=== PATIENT | female | born 1990 | race Caucasian/White ===

== ENCOUNTER → 2021-02-13 | Outpatient (CLI) | payer MEDICAID ==
[~2021-02-13] MED LIST: GADOBUTROL 10 MMOL/10 ML (GADAVIST) VIAL IV ONE
--- NOTE | 2021-02-13 17:01 | Diagnostic Imaging Report ---
PROCEDURE: MR imaging of the brain with and without contrast. TECHNIQUE: Multiplanar, multisequence MR imaging of the brain was performed with and without contrast. INDICATION: Near syncopal episodes. Dizziness. COMPARISON: None FINDINGS: An extra-axial, intensely T1 and T2 hypointense lesion is seen overlying the right frontal lobe which demonstrates no evidence of enhancement. There is a small amount of adjacent cortical edema associated with this lesion. No acute ischemia, intra-axial mass, or hemorrhage. No abnormal enhancement is seen. Focal and confluent areas of T2 hyperintense signal are seen in the periventricular and subcortical white matter. The ventricles, cortical sulci, and basilar cisterns are symmetric and unremarkable. The sellar and suprasellar regions have a normal appearance. The brainstem and posterior fossa are unremarkable. The paranasal sinuses and mastoid air cells demonstrate normal signal characteristics. The globes and orbits are symmetric and unremarkable. The scalp and calvarium have a normal appearance. IMPRESSION: 1. Extra-axial mass which demonstrates no evidence of enhancement. Findings most likely represent a densely calcified meningioma. There is a small amount of adjacent parenchymal edema in the right frontal lobe. Consider CT of the head to further evaluate the osseous features and confirm dense calcification. Neurosurgical consultation should also be considered given the patient history. 2. Focal and confluent T2 hyperintense signal in the periventricular and subcortical white matter in the bilateral cerebral hemispheres. No associated enhancement is seen with these areas. Given the patient age demyelination is felt to be most likely. However, chronic microvascular disease can have this appearance with underlying vasculitis. Consider CSF studies to further evaluate and follow-up as indicated. 3. No acute ischemia or abnormal enhancement. No acute hemorrhage. Dictated by: Dictated on workstation # [id number]
== END ==
LOC: RAD 15:10
PROVIDERS: ATTEND Nurse Practitioner Family
DX: G93.6 Cerebral edema (principal); Z82.0 Family history of epilepsy and other diseases of the nervous system; Z84.89 Family history of other specified conditions
CPT/HCPCS: 70553

== ENCOUNTER → 2021-10-11 | Outpatient (CLI) | payer MEDICAID | LOC: RAD 14:45 | PROVIDERS: ATTEND Nurse Practitioner Family | DX: R20.0 Anesthesia of skin (principal); R20.2 Paresthesia of skin; D33.2 Benign neoplasm of brain, unspecified; R53.1 Weakness; R47.81 Slurred speech ==

== ENCOUNTER 2022-05-16 14:48 | Emergency (ER) | payer MEDICAID ==
[~2022-05-16] VITALS: Ht 162.6 cm; Wt 122.6 kg
--- NOTE | 2022-05-16 14:53 | ED Chest Pain ---
General Stated Complaint: CHEST PAIN History of Present Illness Date Seen by Provider: May 16, 2022 Time Seen by Provider: 14:53 Initial Comments 31-year-old female presents with chest pressure that started about 30 minutes ago. Patient also complains of some left-sided numbness of her whole body. 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 Patient reports that she frequently gets numbness on the left side but this is lasted longer than normal and that has been going on since about 1:30 PM. She denies any focal weakness. Patient denies any shortness of breath, she did have some episodes of vomiting. She denies any radiation of the pain. She reports that she was just in on a couch when the chest pressure started. Patient with Allergies and Home Medications Allergies Coded Allergies: No Known Drug Allergies (Unverified , 02/13/21) Patient Home Medication List Home Medication List Reviewed: Yes Review of Systems Review of Systems Constitutional: No chills, No fever EENTM: No Symptoms Reported; No Blurred Vision Respiratory: Denies Cough, Denies Shortness of Air Cardiovascular: Chest Pain; Denies Lightheadedness, Denies Palpitations, Denies Syncope Gastrointestinal: Denies Abdominal Pain; Nausea, Vomiting Genitourinary: No Symptoms Reported; Denies Burning Musculoskeletal: no symptoms reported Skin: no symptoms reported Psychiatric/Neurological: Denies Headache; Numbness; Denies Weakness Endocrine: No Symptoms Reported Hematologic/Lymphatic: No Symptoms Reported Physical Exam Vital Signs Vital Signs - First Documented 05/16/22 14:48 Temp 36.6 Pulse 67 Resp 18 B/P (MAP) 139/75 (96) Pulse Ox 99 O2 Delivery Room Air Capillary Refill : Height, Weight, BMI Height: '" Weight: lbs. oz. 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 as Tested Skin: Normal Color, Warm/Dry Progress/Results/Core Measures Results/Orders Lab Results Laboratory Tests Test 05/16/22 15:00 05/16/22 16:47 Range/Units White Blood Count 12.1 H 4.3-11.0 10^3/uL Red Blood Count 4.33 3.80-5.11 10^6/uL Hemoglobin 12.5 11.5-16.0 g/dL Hematocrit 38 35-52 % Mean Corpuscular Volume 88 80-99 fL Mean Corpuscular Hemoglobin 29 25-34 pg Mean Corpuscular Hemoglobin Concent 33 32-36 g/dL Red Cell Distribution Width 14.9 H 10.0-14.5 % Platelet Count 296 130-400 10^3/uL Mean Platelet Volume 11.5 9.0-12.2 fL Immature Granulocyte % (Auto) 0 % Neutrophils (%) (Auto) 72 42-75 % Lymphocytes (%) (Auto) 18 12-44 % Monocytes (%) (Auto) 4 0-12 % Eosinophils (%) (Auto) 6 0-10 % Basophils (%) (Auto) 0 0-10 % Neutrophils # (Auto) 8.7 H 1.8-7.8 10^3/uL Lymphocytes # (Auto) 2.1 1.0-4.0 10^3/uL Monocytes # (Auto) 0.5 0.0-1.0 10^3/uL Eosinophils # (Auto) 0.7 H 0.0-0.3 10^3/uL Basophils # (Auto) 0.0 0.0-0.1 10^3/uL Immature Granulocyte # (Auto) 0.0 0.0-0.1 10^3/uL Prothrombin Time 12.9 12.2-14.7 SEC INR Comment 0.9 0.8-1.4 Activated Partial Thromboplast Time 29 24-35 SEC Sodium Level 139 135-145 MMOL/L Potassium Level 4.0 3.6-5.0 MMOL/L Chloride Level 103 98-107 MMOL/L Carbon Dioxide Level 22 21-32 MMOL/L Anion Gap 14 5-14 MMOL/L Blood Urea Nitrogen 16 7-18 MG/DL Creatinine 1.20 0.60-1.30 MG/DL Estimat Glomerular Filtration Rate 62 BUN/Creatinine Ratio 13 Glucose Level 106 H 70-105 MG/DL Calcium Level 8.5 8.5-10.1 MG/DL Corrected Calcium 8.4 L 8.5-10.1 MG/DL Magnesium Level 1.9 1.6-2.4 MG/DL Total Bilirubin 0.3 0.1-1.0 MG/DL Aspartate Amino Transf (AST/SGOT) 16 5-34 U/L Alanine Aminotransferase (ALT/SGPT) 6 0-55 U/L Alkaline Phosphatase 80 40-136 U/L Myoglobin 41.4 <58.0 NG/ML Troponin I < 0.30 < 0.30 <0.30 NG/ML Total Protein 7.9 6.4-8.2 GM/DL Albumin 4.1 3.2-4.5 GM/DL My Orders Orders - HUDSON,GILMER L DO Cbc With Automated Diff (05/16/22 14:55) Magnesium (05/16/22 14:55) Chest 1 View Ap/Pa Only (05/16/22 14:55) Ekg Tracing (05/16/22 14:55) Comprehensive Metabolic Panel (05/16/22 14:55) Myoglobin Serum (05/16/22 14:55) Protime With Inr (05/16/22 14:55) Partial Thromboplastin Time (05/16/22 14:55) Monitor-Rhythm Ecg Trace Only (05/16/22 14:55) Aspirin Chewable Tablet (Baby Aspirin Ch (05/16/22 15:00) Ed Iv/Invasive Line Start (05/16/22 14:55) Troponin I Fs (05/16/22 14:55) Ct Head Wo-R/O Stroke (05/16/22 14:55) Troponin I Fs (05/16/22 16:47) Medications Given in ED Current Medications Medications Dose Ordered Sig/Yaneli Route Start Time Stop Time Status Last Admin Dose Admin Aspirin 324 mg ONCE ONCE PO 05/16/22 15:00 05/16/22 15:01 DC 05/16/22 15:05 324 MG Vital Signs/I&O 05/16/22 05/16/22 14:48 17:31 Temp 36.6 Pulse 67 72 Resp 18 22 B/P (MAP) 139/75 (96) 128/80 Pulse Ox 99 96 O2 Delivery Room Air Room Air Progress Progress Note : Progress Note Patient with negative troponin and negative EKG. Patient's labs show no acute abnormalities. Patient CT shows no acute changes from her previous MRI. Patient with no neurologic findings on exam. Patient was offered admission for observation and further evaluation but declined. Patient is ready to be discharged home and is stable upon discharge Initial ECG Impression Date: May 16, 2022 Initial ECG Impression Time: 14:53 Initial ECG Rate: 71 Initial ECG Rhythm: Normal Sinus Initial ECG Intervals: QRS (111) Initial ECG Impression: Nonspecific Changes Diagnostic Imaging Diagonstic Imaging: CT Plain Films/CT/US/NM/MRI: head Comments Date of Exam:05/16/22 CT HEAD WO-R/O STROKE PROCEDURE: CT head wo r/o stroke. TECHNIQUE: Multiple contiguous axial images were obtained through the brain without the use of intravenous contrast. Auto Exposure Controls were utilized during the CT exam to meet ALARA standards for radiation dose reduction. INDICATION: Left-sided numbness. COMPARISON: MRI brain from 02/13/2021. FINDINGS: No intracranial hyperdense hemorrhage or new mass. Stable densely sclerotic right frontal calvarial lesion which projects inward from the inner table and is most compatible of the osteoma. This results in mild aspect underlying frontal lobe but no midline shift. No hydrocephalus or midline shift. Mineralization of the bilateral basal ganglia noted. No features of acute territorial infarct. No acute calvarial abnormality. Partial opacification of bilateral frontal and ethmoid sinuses. IMPRESSION: 1. No acute intracranial hemorrhage or features of large territorial infarct. 2. 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 This is stable in appearance since recent MRI and does not cause midline shift. Reviewed: Reviewed by Me, Reviewed/Discussed Diagonstic Imaging: Xray Plain Films/CT/US/NM/MRI: chest Comments Date of Exam:05/16/22 CHEST 1 VIEW AP/PA ONLY EXAM: Chest 1 view AP/PA only INDICATION: Chest pain. COMPARISON: None. FINDINGS: Normal heart size and central pulmonary vascularity. Lungs are clear. No pleural effusion or pneumothorax. No acute osseous finding. IMPRESSION: Negative chest. 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 Referrals: NO,LOCAL PHYSICIAN (PCP) Primary Care Physician Patient Instructions: Chest Pain, Chest Pain That Is Not Caused by the Heart (DC) Add. Discharge Instructions: Follow-up with your primary care provider and neurologist as needed Return to the ER with worsening of symptoms or any other concerns GILMER HUDSON DO May 16, 2022 14:53
[2022-05-16] MEDS ORDERED: ASPIRIN 81 MG CHEW (CHILDREN'S ASA) PO ONE (15:00)
[2022-05-16 15:04] LABS: BASOPHILS % (AUTO) 0 % (0-10); EOSINOPHILS # (AUTO) 0.7 10^3/uL (0.0-0.3); EOSINOPHILS % (AUTO) 6 % (0-10); HEMATOCRIT 38 % (35-52); HEMOGLOBIN 12.5 g/dL (11.5-16.0); LYMPHOCYTES # (AUTO) 2.1 10^3/uL (1.0-4.0); LYMPHOCYTES % (AUTO) 18 % (12-44); MEAN CORPUSCULAR HEMOGLOBIN 29 pg (25-34); MEAN CORPUSCULAR HGB CONC 33 g/dL (32-36); MEAN CORPUSCULAR VOLUME 88 fL (80-99); MEAN PLATELET VOLUME 11.5 fL (9.0-12.2); MONOCYTES # (AUTO) 0.5 10^3/uL (0.0-1.0); MONOCYTES % (AUTO) 4 % (0-12); NEUTROPHILS # (AUTO) 8.7 10^3/uL (1.8-7.8); NEUTROPHILS % (AUTO) 72 % (42-75); PLATELET COUNT 296 10^3/uL (130-400); WHITE BLOOD COUNT 12.1 10^3/uL (4.3-11.0)
[2022-05-16 15:19] LABS: INR 0.9 (0.8-1.4); PROTHROMBIN TIME PATIENT 12.9 SEC (12.2-14.7)
[2022-05-16 15:24] LABS: ALBUMIN 4.1 GM/DL (3.2-4.5); BILIRUBIN,TOTAL 0.3 MG/DL (0.1-1.0); CALCIUM 8.5 MG/DL (8.5-10.1); CREATININE SERUM 1.2 MG/DL (0.60-1.30); MAGNESIUM 1.9 MG/DL (1.6-2.4); TOTAL PROTEIN 7.9 GM/DL (6.4-8.2)
--- NOTE | 2022-05-16 15:36 | Diagnostic Imaging Report ---
PROCEDURE: CT head wo r/o stroke. TECHNIQUE: Multiple contiguous axial images were obtained through the brain without the use of intravenous contrast. Auto Exposure Controls were utilized during the CT exam to meet ALARA standards for radiation dose reduction. INDICATION: Left-sided numbness. COMPARISON: MRI brain from 02/13/2021. FINDINGS: No intracranial hyperdense hemorrhage or new mass. Stable densely sclerotic right frontal calvarial lesion which projects inward from the inner table and is most compatible of the osteoma. This results in mild aspect underlying frontal lobe but no midline shift. No hydrocephalus or midline shift. Mineralization of the bilateral basal ganglia noted. No features of acute territorial infarct. No acute calvarial abnormality. Partial opacification of bilateral frontal and ethmoid sinuses. IMPRESSION: 1. No acute intracranial hemorrhage or features of large territorial infarct. 2. 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 This is stable in appearance since recent MRI and does not cause midline shift. Dictated by: Dictated on workstation # [id number]
--- NOTE | 2022-05-16 15:41 | Diagnostic Imaging Report ---
EXAM: Chest 1 view AP/PA only INDICATION: Chest pain. COMPARISON: None. FINDINGS: Normal heart size and central pulmonary vascularity. Lungs are clear. No pleural effusion or pneumothorax. No acute osseous finding. IMPRESSION: Negative chest. Dictated by: Dictated on workstation # [id number]
[2022-05-16 17:31] VITALS: BP 128/80
== END 2022-05-16 17:32 | disposition home or self-care (01) ==
LOC: EDUNIT# 14:48 → ER FS 14:49
DX: I67.850 Cerebral autosomal dominant arteriopathy with subcortical infarcts and leukoencephalopathy (principal); R07.89 Other chest pain; E66.01 Morbid (severe) obesity due to excess calories; Z28.310 Unvaccinated for COVID-19
CPT/HCPCS: 36415; 70450; 71045; 80053; 83735; 83874; 84484; 85025; 85610; 85730; 93005; 93041

== ENCOUNTER 2023-01-05 17:05 | Emergency (ER) | payer SELFPAY ==
[2023-01-05] MEDS ORDERED: NS IV 1000 ML 1,000 ML IV STA (17:27)
[2023-01-05] MEDS ORDERED: diphenhydrAMINE 50 MG/ML INJ (BENADRYL) IVP ONE (17:30)
[2023-01-05] MEDS ORDERED: PROCHLORPERAZINE 10 MG/2ML INJ (COMPAZINE) IV ONE (17:30)
--- NOTE | 2023-01-05 17:30 | ED Neurological Problem ---
General Chief Complaint: Respiratory Problems Stated Complaint: NUMBNESS ON LEFT SIDE,NAUSEA,VOMITING,COUGH,SOA Source: patient, family, old records Exam Limitations: no limitations History of Present Illness Date Seen by Provider: January 05, 2023 Time Seen by Provider: 17:08 Initial Comments 32yoF with PMH of CADASIL, chronic headaches with frequent left sided numbness coming in due to headache and left-sided numbness. This 1 started at 6:30 AM this morning, the headache is on the front right side of her head, constant, throbbing, moderate. She has not taken anything for it as of yet. She has associated nonbloody nonbilious vomiting. It typically gets this bad roughly every month or 2. When this happens, she has associated left-sided numbness which is associated with her CADASIL. She states she is never truly had strokes based on MRIs that she gets. Typically when her headache gets better, the numbness gets better. Currently the numbness is in her left hand only. She is otherwise denying any fever, neck stiffness, chest pain, does endorse some cough and mild dyspnea. LMP was 2 weeks ago and she has had a tubal ligation. Allergies and Home Medications Allergies Coded Allergies: No Known Drug Allergies (Unverified , 02/13/21) Patient Home Medication List Home Medication List Reviewed: Yes Review of Systems Review of Systems Constitutional: No fever Eyes: No Symptoms Reported Ears, Nose, Mouth, Throat: no symptoms reported Respiratory: no symptoms reported Cardiovascular: no symptoms reported Gastrointestinal: nausea, vomiting Genitourinary: no symptoms reported Musculoskeletal: no symptoms reported Skin: no symptoms reported Psychiatric/Neurological: See HPI Endocrine: No Symptoms Reported Past Ivxxkpr-Awstip-Cmcran Hx Patient Social History Tobacco Use?: No Past Medical History Surgery/Hospitalization HX: cadasil Physical Exam Vital Signs Capillary Refill : Height, Weight, BMI Height: '" Weight: lbs. oz. kg; 46.00 BMI Method: General Appearance: WD/WN, no apparent distress HEENT: PERRL/EOMI, normal ENT inspection, pharynx normal Neck: non-tender, full range of motion, supple, normal inspection Respiratory: chest non-tender, lungs clear, normal breath sounds, no respiratory distress, no accessory muscle use Cardiovascular: regular rate, rhythm, no edema, no murmur Gastrointestinal: normal bowel sounds, non tender, soft; No distended, No guarding, No rebound Back: normal inspection, no CVA tenderness Extremities: normal range of motion, non-tender, normal inspection, no pedal edema, no calf tenderness, normal capillary refill 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, alert, normal mood/affect, oriented x 3 Crainal Nerves: normal hearing, normal speech, PERRL, other (Normal visual berg, normal visual acuity) Coordination/Gait: normal finger to nose, normal gait Motor/Sensory: no pronator drift, other (Decreased subjective sensation to her left hand compared to her right, otherwise normal motor and sensory exam) Skin: normal color, warm/dry Stroke Onset of Symptoms Date of Onset of Symptoms: January 05, 2023 Time of Symptom Onset: 06:30 Onset of Symptoms: Yes NIH Stroke Scale Assessment Select: Initial Level of Consciousness: 0=Alert (0), Level of Consciousness-Questions: 0=Answers both month/age (0), LOC Commands: 0=Performs both tasks (0), Gaze: Normal (0), Visual Berg: 0=No visual loss (0), Facial Movement (Facial Paresis): 0=Normal symmetrical mnt (0), Motor Function-Arms Right: 0=No drift (0), Motor Function-Arms Left: 0=No drift (0), Motor Function-Legs Right: 0=No drift (0), Motor Function-Legs Left: 0=No drift (0), Limb Ataxia: 0=Absent (0), Sensory: 1=Mild to Moderate loss left hand mild numbness (1), Best Language: 0=No aphasia (0), Dysarthria: 0=Normal (0), Extinction & Inattention: 0=No abnormality (0), Total: 1 Stroke Thrombolytic Exclusion Age 18 or Over: Yes Improving Symptoms: Yes TPA Contraindication: Yes IV - TPa Received IV - TPa Procedure Performed?: No (patient outside of window) Progress/Results/Core Measures Results/Orders Lab Results Laboratory Tests Test 01/05/23 17:38 Range/Units White Blood Count 13.5 H 4.3-11.0 10^3/uL Red Blood Count 4.30 3.80-5.11 10^6/uL Hemoglobin 12.6 11.5-16.0 g/dL Hematocrit 40 35-52 % Mean Corpuscular Volume 92 80-99 fL Mean Corpuscular Hemoglobin 29 25-34 pg Mean Corpuscular Hemoglobin Concent 32 32-36 g/dL Red Cell Distribution Width 15.1 H 10.0-14.5 % Platelet Count 280 130-400 10^3/uL Mean Platelet Volume 12.0 9.0-12.2 fL Immature Granulocyte % (Auto) 0 % Neutrophils (%) (Auto) 88 H 42-75 % Lymphocytes (%) (Auto) 9 L 12-44 % Monocytes (%) (Auto) 3 0-12 % Eosinophils (%) (Auto) 0 0-10 % Basophils (%) (Auto) 0 0-10 % Neutrophils # (Auto) 11.8 H 1.8-7.8 10^3/uL Lymphocytes # (Auto) 1.2 1.0-4.0 10^3/uL Monocytes # (Auto) 0.4 0.0-1.0 10^3/uL Eosinophils # (Auto) 0.1 0.0-0.3 10^3/uL Basophils # (Auto) 0.0 0.0-0.1 10^3/uL Immature Granulocyte # (Auto) 0.1 0.0-0.1 10^3/uL Neutrophils % (Manual) 83 % Lymphocytes % (Manual) 9 % Monocytes % (Manual) 3 % Eosinophils % (Manual) 1 % Basophils % (Manual) 0 % Band Neutrophils 4 % Prothrombin Time 13.0 12.2-14.7 SEC INR Comment 0.9 0.8-1.4 Activated Partial Thromboplast Time 25 24-35 SEC Sodium Level 140 135-145 MMOL/L Potassium Level 4.2 3.6-5.0 MMOL/L Chloride Level 104 98-107 MMOL/L Carbon Dioxide Level 23 21-32 MMOL/L Anion Gap 13 5-14 MMOL/L Blood Urea Nitrogen 13 7-18 MG/DL Creatinine 1.18 0.60-1.30 MG/DL Estimat Glomerular Filtration Rate 63 BUN/Creatinine Ratio 11 Glucose Level 124 H 70-105 MG/DL Calcium Level 9.2 8.5-10.1 MG/DL Corrected Calcium 9.2 8.5-10.1 MG/DL Total Bilirubin 0.5 0.1-1.0 MG/DL Aspartate Amino Transf (AST/SGOT) 22 5-34 U/L Alanine Aminotransferase (ALT/SGPT) 18 0-55 U/L Alkaline Phosphatase 70 40-136 U/L Troponin I < 0.30 <0.30 NG/ML Total Protein 7.7 6.4-8.2 GM/DL Albumin 4.0 3.2-4.5 GM/DL Serum Test, Qualitative NEGATIVE NEGATIVE My Orders Orders - BEATA CRANDALL MD Cbc With Automated Diff (01/05/23 17:25) Protime With Inr (01/05/23 17:25) Partial Thromboplastin Time (01/05/23 17:25) Comprehensive Metabolic Panel (01/05/23 17:25) Troponin I Fs (01/05/23 17:25) Hcg,Qualitative Serum (01/05/23 17:25) Ekg Tracing (01/05/23 17:25) Ed Iv/Invasive Line Start (01/05/23 17:25) Vital Signs Stroke Patient Q15M (01/05/23 17:25) Ct Head Wo-R/O Stroke (01/05/23 17:25) O2 (01/05/23 17:25) Intake & Output 06,14,22 (01/05/23 17:25) Monitor-Rhythm Ecg Trace Only (01/05/23 17:25) Dysphagia Screening Tool [id number] (01/05/23 17:25) Prochlorperazine Injection (Compazine In (01/05/23 17:30) Diphenhydramine Injection (Benadryl Inje (01/05/23 17:30) Ns Iv 1000 Ml (Sodium Chloride 0.9%) (01/05/23 17:27) Manual Differential (01/05/23 17:38) Medications Given in ED Current Medications Medications Dose Ordered Sig/Yaneli Route Start Time Stop Time Status Last Admin Dose Admin Diphenhydramine HCl 25 mg ONCE ONCE IVP 01/05/23 17:30 01/05/23 17:31 DC 01/05/23 17:40 25 MG Prochlorperazine Edisylate 10 mg ONCE ONCE IV 01/05/23 17:30 01/05/23 17:31 DC 01/05/23 17:40 10 MG Progress Progress Note : Progress Note 30-year-old female with above history coming in due to headache and left hand numbness. ABCs were intact and vitals were stable on presentation. NIH was 1 for the left hand numbness, however she is well outside of the window to receive tPA. She states this is consistently what happens when she has headaches, and she never has had a stroke as seen on MRIs. CT head stroke protocol negative for acute findings. An IV was placed and basic labs were obtained. EKG on my interpretation with no acute ischemic changes. Creatinine normal, hemoglobin normal, troponin negative, preg test negative. Patient was treated with IV compazine and benadryl for her headache. Her headache significantly improved as did her numbness. I discussed with the patient that she needs an MRI as an outpatient as well as neurology follow up. She is already on dual anti-platelet therapy and has been essentially optimized from a risk factor standpoint with medications, likely would not benefit from an observation admission from medication changes standpoint. I think she just needs intensive outpatient management, especially given this really is a chronic issue at this point. I believe she is otherwise stable for discharge with outpatient follow-up. She was sent home with strict return precautions Initial ECG Impression Date: January 05, 2023 Initial ECG Impression Time: 17:29 Initial ECG Rate: 75 Initial ECG Rhythm: Normal Sinus Comment Narrow QRS, normal axis, no significant ST changes, T wave inversions in leads III and aVF which are nonspecific Diagnostic Imaging Diagonstic Imaging: CT (head) Comments NAME: TIFFANIE SCHAFER [facility] REC#: [id number] PT STATUS: REG ER : 1990 PHYSICIAN: BEATA CRANDALL MD ADMIT DATE: 01/05/23/ER FS Signed Date of Exam:01/05/23 CT HEAD WO-R/O STROKE INDICATION: left hand numbness and headache, history of CADASIL TECHNIQUE: Routine non contrast-enhanced axial images were obtained from the skull base to the vertex. Auto Exposure Controls were utilized during the CT exam to meet ALARA standards for radiation dose reduction COMPARISON: MR brain dated 02/13/2021 FINDINGS: The ventricles and cortical sulci are normal in size and contour. There are areas of diminished attenuation within the periventricular and subcortical deep white matter. Appearance is typically seen with chronic small vessel ischemic changes. Although considered abnormal in a patient of this age, this is consistent with appearance on MRI from 02/13/2021. There is no midline shift or mass-effect. No acute intra-axial hemorrhage is seen. There are no abnormal areas of increased or decreased density to suggest acute hemorrhage or edema. No extra-axial masses or collections are present. 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 The visualized paranasal sinuses show mucosal retention cyst versus polyp in the left maxillary sinus. The mastoid air cells are clear. IMPRESSION: 1. No acute intracranial abnormality. No CT evidence of mass, acute infarct or intracranial hemorrhage. 2. Areas of diminished attenuation within the deep white matter are again noted and appear more prominent than expected to be on the basis of chronic small vessel ischemic changes given patient's age. Findings could be on the basis of underlying demyelinating process such as multiple sclerosis. Correlation with clinical history is advised. Results were called to Dr. Crandall by Dr. Thomson at 1804 on 01/05/2023. 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 Decision time for Depature: 18:55 Referrals: NO,LOCAL PHYSICIAN (PCP/Family) Primary Care Physician Patient Instructions: Headache, Adult ED Add. Discharge Instructions: We recommend following up with a neurologist, [facility] has good ones to follow-up with if you would like. You can call to schedule an appointment at [phone] and ask to schedule an appointment with a vascular neurologist. Nausea medicines were sent to your pharmacy to take. Sure to take your other regular medicines as prescribed. Scripts Ondansetron (Ondansetron Odt) 4 Mg Tab.rapdis 4 MG SL Q6H PRN for NAUSEA/VOMITING for 5 Days, #20 TAB Prov: BEATA CRANDALL MD 01/05/23 Work/School Note: Family Work Note, Patient Received Medical Care In the Emergency Department On: January 05, 2023 Patient Will Be Able to Return to Work/School On: January 06, 2023 Work Release Form Date Seen in the Emergency Department: January 05, 2023 Return to Work: January 06, 2023 Restrictions: No Restrictions BEATA CRANDALL MD January 05, 2023 17:30
[2023-01-05 18:11] LABS: BASOPHILS % (AUTO) 0 % (0-10); EOSINOPHILS # (AUTO) 0.1 10^3/uL (0.0-0.3); EOSINOPHILS % (AUTO) 0 % (0-10); HEMATOCRIT 40 % (35-52); HEMOGLOBIN 12.6 g/dL (11.5-16.0); LYMPHOCYTES # (AUTO) 1.2 10^3/uL (1.0-4.0); LYMPHOCYTES % (AUTO) 9 % (12-44); MEAN CORPUSCULAR HEMOGLOBIN 29 pg (25-34); MEAN CORPUSCULAR HGB CONC 32 g/dL (32-36); MEAN CORPUSCULAR VOLUME 92 fL (80-99); MONOCYTES # (AUTO) 0.4 10^3/uL (0.0-1.0); MONOCYTES % (AUTO) 3 % (0-12); NEUTROPHILS # (AUTO) 11.8 10^3/uL (1.8-7.8); NEUTROPHILS % (AUTO) 88 % (42-75); PLATELET COUNT 280 10^3/uL (130-400); WHITE BLOOD COUNT 13.5 10^3/uL (4.3-11.0)
--- NOTE | 2023-01-05 18:16 | Diagnostic Imaging Report ---
INDICATION: left hand numbness and headache, history of CADASIL TECHNIQUE: Routine non contrast-enhanced axial images were obtained from the skull base to the vertex. Auto Exposure Controls were utilized during the CT exam to meet ALARA standards for radiation dose reduction COMPARISON: MR brain dated 02/13/2021 FINDINGS: The ventricles and cortical sulci are normal in size and contour. There are areas of diminished attenuation within the periventricular and subcortical deep white matter. Appearance is typically seen with chronic small vessel ischemic changes. Although considered abnormal in a patient of this age, this is consistent with appearance on MRI from 02/13/2021. There is no midline shift or mass-effect. No acute intra-axial hemorrhage is seen. There are no abnormal areas of increased or decreased density to suggest acute hemorrhage or edema. No extra-axial masses or collections are present. 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 The visualized paranasal sinuses show mucosal retention cyst versus polyp in the left maxillary sinus. The mastoid air cells are clear. IMPRESSION: 1. No acute intracranial abnormality. No CT evidence of mass, acute infarct or intracranial hemorrhage. 2. Areas of diminished attenuation within the deep white matter are again noted and appear more prominent than expected to be on the basis of chronic small vessel ischemic changes given patient's age. Findings could be on the basis of underlying demyelinating process such as multiple sclerosis. Correlation with clinical history is advised. Results were called to Dr. Witt by Dr. Ley at 1804 on 01/05/2023. Dictated by: Dictated on workstation # [id number]
[2023-01-05 18:22] LABS: INR 0.9 (0.8-1.4)
[2023-01-05 18:30] LABS: CARBON DIOXIDE 23 MMOL/L (21-32); CHLORIDE 104 MMOL/L (98-107); POTASSIUM 4.2 MMOL/L (3.6-5.0); SODIUM 140 MMOL/L (135-145)
[2023-01-05 18:31] LABS: ALANINE AMINOTRANSFERASE 18 U/L (0-55); ALKALINE PHOSPHATASE 70 U/L (40-136); BILIRUBIN,TOTAL 0.5 MG/DL (0.1-1.0); BUN/CREATININE RATIO 11; CALCIUM 9.2 MG/DL (8.5-10.1); CREATININE SERUM 1.18 MG/DL (0.60-1.30); GFR ESTIMATED 63; GLUCOSE 124 MG/DL (70-105); TOTAL PROTEIN 7.7 GM/DL (6.4-8.2)
[2023-01-05 18:32] LABS: BAND NEUTROPHILS 4 %; BASOPHILS % (MANUAL) 0 %; EOSINOPHILS % (MANUAL) 1 %; LYMPHOCYTES % (MANUAL) 9 %; MONOCYTES % (MANUAL) 3 %; NEUTROPHILS % (MANUAL) 83 %
[2023-01-05] MEDS ORDERED: ONDA4TAB11 SL (18:53)
[2023-01-05 18:57] VITALS: BP 110/58
== END 2023-01-05 18:58 | disposition home or self-care (01) ==
LOC: EDUNIT# 17:05 → ER FS 17:07
DX: I67.850 Cerebral autosomal dominant arteriopathy with subcortical infarcts and leukoencephalopathy (principal); R11.2 Nausea with vomiting, unspecified; Z28.310 Unvaccinated for COVID-19
CPT/HCPCS: 36415; 70450; 80053; 84484; 84703; 85007; 85027; 85610; 85730; 93005